=== PATIENT | female | born 2005 | race Caucasian/White ===

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

== ENCOUNTER 2023-02-08 08:53 | Outpatient (CLI) | payer OTHER, SELFPAY ==
--- NOTE | 2023-02-08 09:00 | CRLHL7_ITS ---
For Patients: As a result of the Century Cures Act, medical imaging exams and procedure reports are released immediately into your electronic medical record. You may view this report before your referring provider. If you have questions, please contact your health care provider. Indication: Sinus disease Technique: Performed without IV contrast Comparison: CT brain 08/21/2017 Findings: Frontal sinuses: Clear. Ethmoid sinuses: Minimal mucosal thickening within the left ethmoid sinus. The right ethmoid sinus is clear. Maxillary sinuses: Moderately severe opacification of the left maxillary sinus with mucosal thickening and mucous. The right maxillary sinus is clear. The maxillary sinus drainage pathways are obstructed on the left and patent on the right. Sphenoid sinuses: Mild mucosal thickening within the left anterior sphenoid sinus with partial obstruction of the sphenoidal ethmoidal recess. The right sphenoid sinus is clear as is the right sphenoethmoidal recess. Nasal Cavity: Nasal septum is midline. No polyps. No TMJ abnormalities identified. The visualized portions of the orbits, intracranial contents and upper soft tissue neck are grossly negative. Impression: 1. Moderately severe left maxillary sinus disease with obstruction of the sinus drainage pathway. 2. Mild sinus disease involving the left sphenoid and left ethmoid sinus. Please note that all CT scans at this facility use dose modulation, iterative reconstruction, and/or weight-based dosing when appropriate to reduce radiation dose to as low as reasonably achievable. Dictated by Reddy Orta MD @ 02/08/2023 5:05:54 PM (Electronically Signed)
== END 2023-02-08 08:54 | disposition home or self-care (01) ==
PROVIDERS: PCP Family Medicine; Visit Provider Otolaryngology
DX: J32.9 Chronic sinusitis, unspecified (principal); J32.0 Chronic maxillary sinusitis
CPT/HCPCS: 70486

== ENCOUNTER 2023-02-14 15:50 | Emergency (ER) | payer OTHER, SELFPAY ==
--- NOTE | 2023-02-14 16:22 | ED.NURSE ---
Pt reports it hurts to open mouth. Looks somewhat swollen in her throat.
--- NOTE | 2023-02-14 16:49 | CRLHL7_ITS ---
For Patients: As a result of the Cures Act, medical imaging exams and procedure reports are released immediately into your electronic medical record. You may view this report before your referring provider. If you have questions, please contact your health care provider. Indication: Throat pain, swollen tonsils, recent wisdom teeth removal Technique: CT neck with IV contrast Please note that all CT scans at this facility use dose modulation, iterative reconstruction, and/or weight-based dosing when appropriate to reduce radiation dose to as low as reasonably achievable. Comparison: None Findings: Partially visualized brain parenchyma and extra-axial spaces appear normal. The orbits appear normal. The paranasal sinuses demonstrates a small amount opacification in the maxillary sinus otherwise they are clear. There may be a defect within the floor of the right maxillary sinus (series 4, image 23) where the right within was removed. The mastoid air cells appear clear. The parapharyngeal spaces, retropharynx, nasopharynx, oropharynx, oral cavity, hypopharynx, larynx and airways appear normal. Residual thymic tissue in the anterior mediastinum. Lung apices clear. Thyroid, submandibular glands and parotid glands are normal. No significant lymphadenopathy. No tonsillar enlargement. There are mild inflammatory changes in the tool grinder operator external space. Findings of recent wisdom tooth removal without evidence of abscess. No evidence of fracture. No malalignment. The vessels appear normal. Impression: 1. Findings of recent wisdom tooth removal without evidence of abscess. No significant tonsillar enlargement or lymphadenopathy. 2. Possible defect in the floor of the right maxilla at site of the right maxillary wisdom tooth removal. Please note that all CT scans at this facility use dose modulation, iterative reconstruction, and/or weight-based dosing when appropriate to reduce radiation dose to as low as reasonably achievable. Dictated by Ameya Villarreal MD @ 02/14/2023 7:00:37 PM (Electronically Signed)
--- NOTE | 2023-02-14 16:50 | ED.GENADULT ---
HPI - General Adult General Chief complaint: Sore Throat Stated complaint: Tonsils feel swollen, wisdom teeth out 1 wk Time Seen by Provider: 02/14/23 16:06 History of Present Illness HPI narrative: This 17-year-old female had her wisdom teeth removed about a week ago and comes in today because she continues to have discomfort and difficulty opening her mouth. She called the dentist office regarding this and was told that is not typical to be feeling this way a week later so she presents here for further evaluation. She does also have on the schedule a sinus surgery with [facility] at the end of this week. She states that she has a completely opacified left maxillary sinus. She was on Augmentin up until a week ago and then now it just finished amoxicillin status post dental wisdom surgery. Related Data Home Medications Medication Instructions Recorded Confirmed adapalene 0.3 % topical gel topical 10/14/22 02/08/23 spironolactone 100 mg tablet 100 mg PO BID 10/14/22 02/08/23 cetirizine 10 mg tablet (Zyrtec) 10 mg PO QPM 10/15/22 02/08/23 loratadine 10 mg tablet (Claritin) 10 mg PO QAM 10/15/22 02/08/23 fluoxetine 20 mg capsule 40 mg PO DAILY 01/26/23 02/08/23 Previous Rx's Medication Instructions Recorded hydrocodone 5 mg-acetaminophen 325 1 tab PO Q4-6H PRN pain #15 tabs 02/14/23 mg tablet Allergies Allergy/AdvReac Type Severity Reaction Status Date / Time No Known Allergies Allergy Unknown Verified 02/14/23 15:56 Review of Systems Status of ROS: Reports: 10 or more systems reviewed and unremarkable except as noted in History and below Narrative: Constitutional: No fevers, no weight gain or loss. Eyes: No discharge. No vision changes. HENT: She has increased pain when opening her mouth because of swelling in the submandibular region of her upper neck anteriorly. Cardiovascular: No chest pain, no palpitations. Respiratory: No shortness of breath, no wheezes, no cough. Gastrointestinal: No abdominal pain, no vomiting, no diarrhea. Genitourinary: No dysuria, no hematuria. Musculoskeletal: Normal range of motion. Skin: No rashes, no pruritis. Neurological: No dizziness, weakness, sensory change, speech change. Endo/Heme/Allergies: No bruising or bleeding. No polydipsia. Pysch: no suicidality, no anxiety, no insomnia. All other systems reviewed and are negative. [facility] Medical History (Updated 02/14/23 @ 19:21 by Jefferson Wu MD) Sinusitis ?J32.9 - Chronic sinusitis, unspecified (ICD-10) Depression ?F32.A - Depression, unspecified (ICD-10) Acute pyelonephritis (11/11/22) ?N10 - Acute pyelonephritis (ICD-10) Allergic rhinitis ?J30.9 - Allergic rhinitis, unspecified (ICD-10) Anxiety ?F41.9 - Anxiety disorder, unspecified (ICD-10) Fatigue ?R53.83 - Other fatigue (ICD-10) Partial septate uterus ?Q51.22 - Partial doubling of uterus (ICD-10) Other ovarian cyst, left side (10/11/21) ?N83.292 - Other ovarian cyst, left side (ICD-10) Concussion without loss of consciousness (08/21/17) ?S06.0X0A - Concussion without loss of consciousness, initial encounter (ICD-10) Surgical History (Updated 11/18/22 @ 10:19 by Kalpana Crespo) History of pelvic ultrasound ?Z92.89 - Personal history of other medical treatment (ICD-10) History of excision of pilonidal cyst ?Z98.890 - Other specified postprocedural states (ICD-10) Family History (Updated 11/18/22 @ 10:05 by Kalpana Crespo) Maternal Grandfather Coronary artery disease Paternal Grandfather Prostate cancer Maternal Grandmother Thyroid cancer Social History Smoking Status: Never smoker Do you use any of these nicotine containing products: None Second hand tobacco smoke exposure: No How often do you have a drink containing alcohol: never How often do you have six or more drinks on one occasion: Never AUDIT-C Alcohol total score: 0 Non-prescribed substance use: denies use service: No Exam Narrative: Exam Narrative: Constitutional: Well-developed, well-nourished, no acute distress. HEENT: Normocephalic, atraumatic. Oropharynx appears normal. [place] teeth are removed and there is no sign of abscess. She does have some mild trismus and reports pain in the area of the submandibular region bilaterally, right greater than left. Neck: Normal range of motion. Nontender. Supple. Heart: Regular. No murmurs. Normal rate. Intact distal pulses. Lungs: Clear to auscultation. No chest discomfort. No wheezes, rhonchi, or rales. Abdomen: Normal bowel sounds. Nontender. No rebound tenderness. Genitalia: Deferred. Back: No midline tenderness. Normal range of motion. Extremities: Normal range of motion. No injury. Skin: Intact. No rash. Warm. No erythema or pallor. Neurologic: No altered sensation. No weakness. Alert and oriented. Psychiatric: No suicidality. No anxiety or depression. No insomnia. Nursing notes and vitals signs are reviewed. Const: Vital Signs, click to edit/add: Vital Signs - 24 hr 02/14/23 18:23 Temperature 98.4 F Pulse Rate [Left P ulse Oximeter] 49 L Respiratory Rate 18 Blood Pressure [Ri ght Upper Arm] 118/67 Pulse Oximetry 100 Oxygen Delivery Me thod Room Air Course Vital Signs Vital signs: Initial Vital Signs Respiratory Effort Normal, Spontaneous, Non-Labored 02/14/23 16:19 Respiratory Depth Normal 02/14/23 16:19 Respiratory Pattern Normal 02/14/23 16:19 Vital Signs Temperature 98.4 F 02/14/23 18:23 Pulse Rate 49 L 02/14/23 18:23 Respiratory Rate 18 02/14/23 18:23 Blood Pressure 118/67 02/14/23 18:23 Pulse Oximetry 100 02/14/23 18:23 Oxygen Delivery Method Room Air 02/14/23 18:23 Temperature 98.4 F 02/14/23 18:23 Pulse Rate 49 L 02/14/23 18:23 Respiratory Rate 18 02/14/23 18:23 Blood Pressure 118/67 02/14/23 18:23 Pulse Oximetry 100 02/14/23 18:23 Oxygen Delivery Method Room Air 02/14/23 18:23 Medical Decision Making MDM Narrative Medical decision making narrative: This patient comes in with symptoms related to wisdom teeth removal it occurred about a week ago. She called in to her dentist who stated that she should not be feeling these symptoms any longer and was encouraged to come in here for evaluation. An IV was established and a CT scan of the soft tissue of the neck was acquired. This returns with no obvious acute findings. The patient did state that she had a left maxillary sinus that was full of fluid and is scheduled for sinus surgery at the end of this week. She is also scheduled to have tonsils and adenoids removed. I note on the CT imaging that her left maxillary sinus has a small amount of fluid inferiorly but no certain opacification with fluid. This patient is okay to return home. She did receive a prescription for some tablets of [place] for pain relief. She is encouraged to follow-up with [facility] as scheduled and if needed with her oral dental surgeon. Lab Data Labs: Lab Results 02/14/23 Range/Units 17:05 WBC 7.51 (4.50-11.00) K/uL RBC 4.51 (4.00-5.20) m/uL Hgb 12.6 (12.0-16.0) gm/dL Hct 37.8 (33.0-51.0) % MCV 84 (80-100) fL MCH 28 (26-34) pg MCHC 33 (32-36) gm/dL RDW Coeff of Brigitte 13.3 (11.5-15.5) % Plt Count 353 (140-440) K/uL Neut % (Auto) 69.7 (42.0-72.0) % Lymph % (Auto) 22.5 (20-44) % [place] % (Auto) 5.9 (0.0-11.0) % Eos % (Auto) 1.5 (0.0-7.0) % Baso % (Auto) 0.4 (0.0-3.0) % Neut # (Auto) 5.24 (1.7-7.0) K/uL Lymph # (Auto) 1.69 (0.90-2.90) K/uL [place] # (Auto) 0.40 (0.00-0.90) K/UL Eos # (Auto) 0.11 (0.00-0.50) K/uL Baso # (Auto) 0.03 (0.00-0.30) K/uL Abs Immat Gran (auto) 0.00 (0.00-0.30) K/uL Imm/Tot Granulo (auto) 0.0 % Imaging Data CT Soft Tissue Neck: Radiologist's impression: 1. Findings of recent wisdom tooth removal without evidence of abscess. No significant tonsillar enlargement or lymphadenopathy. 2. Possible defect in the floor of the right maxilla at site of the right maxillary wisdom tooth removal. Discharge Plan Discharge Clinical Impression: Pain, dental Patient Disposition: Home, Self-Care Condition: Stable Additional Instructions: Take medication as needed and directed. [facility] as scheduled. Return if worsening. Prescriptions: New hydrocodone-acetaminophen 5-325 mg tablet 1 tab PO Q4-6H PRN (Reason: pain) Qty: 15 0RF No Action fluoxetine 20 mg capsule 40 mg PO DAILY adapalene 0.3 % gel topical spironolactone 100 mg tablet 100 mg PO BID loratadine [Claritin] 10 mg tablet 10 mg PO QAM cetirizine [Zyrtec] 10 mg tablet 10 mg PO QPM Follow Up/Referrals: Wilda Lal MD [Primary Care Provider] - Stand Alone Forms: [facility] Info Instructions
[2023-02-14 17:23] LABS: Basophils Absolute Auto 0.03 K/uL (0.00-0.30); Basophils Percent Auto 0.4 % (0.0-3.0); Eosinophils Absolute Auto 0.11 K/uL (0.00-0.50); Eosinophils Percent Auto 1.5 % (0.0-7.0); Hematocrit 37.8 % (33.0-51.0); Hemoglobin* 12.6 gm/dL (12.0-16.0); Lymphocytes Absolute Auto 1.69 K/uL (0.90-2.90); Lymphocytes Percent Auto 22.5 % (20-44); Mean Corpuscular HGB Conc 33 gm/dL (32-36); Mean Corpuscular Hemoglobin 28 pg (26-34); Mean Corpuscular Volume 84 fL (80-100); Monocytes Percent Auto 5.9 % (0.0-11.0); Neutrophils Absolute Auto 5.24 K/uL (1.7-7.0); Neutrophils Percent Auto 69.7 % (42.0-72.0); Platelet Count* 353 K/uL (140-440); RDW Coefficient of Variation % 13.3 % (11.5-15.5); Red Blood Count 4.51 m/uL (4.00-5.20); White Blood Count* 7.51 K/uL (4.50-11.00)
[2023-02-14 17:28] LABS: Slide Review Reflex No
[2023-02-14 18:23] VITALS: BP 118/67; PULSE 49; RESP 18; TEMP 36.9; O2SAT 100
--- NOTE | 2023-02-14 18:34 | PC.OBNST ---
[email or web address] The provider's electronic signature indicates the NST is reactive/appropriate for gestational age. *Note to provider: If an addendum is required, open the patient's chart and click on the note under the Nurse/Allied Health tab.
--- NOTE | 2023-02-14 18:34 | ED.NURSE ---
Took pt IV out in right AC.
== END 2023-02-14 19:28 | disposition home or self-care (01) ==
PROVIDERS: Emergency Provider Emergency Medicine Emergency Medical Services; PCP Family Medicine
DX: K08.89 Other specified disorders of teeth and supporting structures (principal)
CPT/HCPCS: 36415; 70491; 85025; 99283; 99284; Q9967

== ENCOUNTER 2023-06-17 16:00 | Outpatient (CLI) | payer OTHER, SELFPAY ==
--- NOTE | 2023-06-17 16:00 | CRLHL7_ITS ---
For Patients: As a result of the Century Cures Act, medical imaging exams and procedure reports are released immediately into your electronic medical record. You may view this report before your referring provider. If you have questions, please contact your health care provider. INDICATION: Excessive and frequent menstruation TECHNIQUE: Ultrasound pelvis transabdominal and transvaginal for better assessment or to better visualize the endometrium. Real-time sonographic images with spectral and color Doppler imaging of the ovaries were obtained. COMPARISON: Pelvic ultrasound of 11/21/2021 FINDINGS: Uterus: 7.6 x 4.8 x 6.3 cm. Normal echotexture of the myometrium. No masses. Likely sub septate uterus. Endometrium: Transvaginal imaging was performed to better evaluate the endometrium. Endometrial thickness measures 1 mm. No sign of endometrial mass or fluid. Right ovary 3.9 x 2.1 x 3.1 centimeters. Left ovary 4.9 x 2.5 x 3.4 centimeters. No ovarian or adnexal masses. Multiple follicles are seen within the left ovary. Normal arterial and venous blood flow is demonstrated in both ovaries. Cul-de-sac: No significant free fluid. IMPRESSION: 1. Likely sub septate uterus; otherwise, the uterus and endometrium are unremarkable. 2. The bilateral ovaries are within normal limits in appearance with no evidence of torsion or masses. Dictated by Anoop Kelley MD @ 06/21/2023 12:37:52 PM (Electronically Signed)
== END 2023-06-17 16:01 | disposition home or self-care (01) ==
LOC: US 16:01
PROVIDERS: PCP Family Medicine; Visit Provider Obstetrics & Gynecology
DX: N92.1 Excessive and frequent menstruation with irregular cycle (principal); Z97.5 Presence of (intrauterine) contraceptive device
CPT/HCPCS: 76830; 76856; 93976

== ENCOUNTER 2023-07-22 08:44 | Day surgery (SDC) | payer OTHER, SELFPAY ==
[2023-07-22] VITALS (14 sets, daily range): BP systolic 106–138; BP diastolic 63–95; PULSE 53–85; RESP 10–16; TEMP 36.3–36.9; O2SAT 95–98; BMI 26.8
[2023-07-22] MEDS: SODIUM CHLORIDE 0.9 % (FLUSH) 10 ML SYRINGE IVF (09:37)
[2023-07-22] MEDS: LACTATED RINGERS 1000 ML 1,000 ML 35 ML IV (09:38)
[2023-07-22] MEDS: OXYMETAZOLINE 0.05% NASAL SPRAY 2 SPRAY NOSTRIL-B (09:38)
[2023-07-22 10:07] LABS: HCG Qualitative Serum* Negative (Negative)
--- NOTE | 2023-07-22 10:09 | W.ANESCHARGE ---
Anesthesia Charges Start Date/Time Anesthesia Start Date: 07/22/23 Anesthesia Start Time: 10:24 Stop Date/Time Anesthesia Stop Date: 07/22/23 Anesthesia Stop Time: 11:16
[2023-07-22] MEDS: SILVER NITRATE APPLICATOR 1 EACH STICK..EA. TOPICAL (10:26)
[2023-07-22] MEDS: COCAINE HCL 4 % 4 ML SOLUTION NOSTRIL-B (10:37)
--- NOTE | 2023-07-22 10:44 | SUR.OPER ---
PATIENT QUESTIONS ANSWERED SATISFACTORILY PREOPERATIVELY. PATIENT BROUGHT TO OR #2 PER CART. Patient positioned supine on OR #2 bed. Perioperative team wrapped arms bilaterally at patient side with drawsheet. ? Final approval of positioning by surgeon.
[2023-07-22] MEDS: BUPIVACAINE 0.5 %/EPI 1:200K 3 ML INJECTION (10:52)
[2023-07-22] MEDS: AYR SALINE NASAL GEL 1 APPLIC NOSTRIL-B (10:53)
[2023-07-22] MEDS: MUPIROCIN 1 GM PACKET 1 APPLIC TOPICAL (11:00)
--- NOTE | 2023-07-22 11:02 | W.PM.ENTPROC ---
Procedure Note Date of procedure: 07/22/23 Procedure: Preop diagnosis nasal obstruction, adenoid hypertrophy, inferior turbinate hypertrophy, bilateral middle turbinate hypertrophy, chronic left maxillary sinusitis, right anterior epistaxis Postoperative diagnosis same Procedure cautery control epistaxis right anterior simple, submucous partial resection inferior turbinate bilateral, endoscopic left maxillary antrostomy, adenoidectomy Under general trach anesthesia patient was prepped and draped in usual fashion. The nose was decongested with cocaine pledgets. [place]vor mouth gag was inserted the tongue retracted forward. The adenoid pad was visualized with a laryngeal mirror and removed with suction cautery. It was moderately enlarged. After regarding gloving attention was turned to the nose. The nose was injected. A stab incision was made in the anterior of the right inferior turbinate a tunnel created with a [place] dissector. A conservative anterior submucous resection was performed in the Coblation was used for hemostasis and to cauterize intramurally along the inferior 10%. This was repeated on the left side in identical fashion. Both middle turbinates were crushed with the [place] forceps The image guidance system was utilized and the inferior quarter the uncinate process taken down exposing natural ostia the left maxillary sinus. This was occluded by polypoid tissue. A 9 mm antrostomy was created and a moderate amount of purulent fluid and polypoid tissue was removed from the left maxillary sinus. Specimens were sent to pathology. A Merocel pack coated in Bactroban was placed in the middle meatus on each side. The patient procedure well was taken recovery in satisfactory condition. Blood loss was 25 mL. Surgeon: Alonzo Avelar MD
--- NOTE | 2023-07-22 11:15 | W.ANESCHARGE ---
Anesthesia Charges Start Date/Time Anesthesia Start Date: 07/22/23 Anesthesia Start Time: 10:24 Stop Date/Time Anesthesia Stop Date: 07/22/23 Anesthesia Stop Time: 11:16
[2023-07-22] MEDS: fentaNYL 100 MCG/2 ML inj 50 MCG IVP (11:30)
[2023-07-22] MEDS: OXYCODONE 5 MG TABLET PO (12:15)
[2023-07-22] MEDS: IBUPROFEN 200 MG TABLET PO (12:15)
[2023-07-22] MEDS: ACETAMINOPHEN 325 MG TABLET PO (12:50)
== END 2023-07-22 13:12 | disposition home or self-care (01) ==
LOC: OR 08:44
PROVIDERS: PCP Family Medicine; Visit Provider Otolaryngology
PROC: (CPT 31231; principal; 2023-07-22 09:45)
DX: J35.2 Hypertrophy of adenoids (principal); J32.0 Chronic maxillary sinusitis; J34.3 Hypertrophy of nasal turbinates; R04.0 Epistaxis
CPT/HCPCS: 42831; 30901; 30140; 31267; 00160; 36415; 81025; 84703; 88305; A9270; J0330; J1100; J2250; J2405; J2704; J3010; J3490; J7120